=== PATIENT | female | born 1995 | race Caucasian/White ===

== ENCOUNTER 2021-02-24 18:00 | Inpatient (IN) | payer BC ==
[~2021-02-24] VITALS: Ht 165.1 cm; Wt 105.0 kg
[2021-02-24] MEDS ORDERED: GLUCOPHAGE1000 MG PO (18:16)
[2021-02-24 19:15] VITALS: BP 157/85
--- NOTE | 2021-02-24 20:08 | NUR ---
PT TO RADIOLOGY VIA WHEELCHAIR
--- NOTE | 2021-02-24 20:20 | NUR ---
PT RETURNED FROM RADIOLOGY
[2021-02-24 20:30] VITALS: BP 143/92
--- NOTE | 2021-02-24 21:17 | NUR ---
PT GIVEN ICE WATER TO DRINK. DENIES FURTHER NEEDS. CALL LIGHT IN REACH.
[2021-02-24 21:29] LABS: BASOPHILS 0.4 % (0-2); EOSINOPHILS 6.5 % (0-7); HEMATOCRIT 40.7 % (36.0-48.0); HEMOGLOBIN 12.8 g/dL (12-16); LYMPHOCYTES 46.5 % (15-50); MCH 25.1 pg (26.0-34.0); MCHC 31.4 g/dL (31.0-37.0); MCV 79.8 fL (80.0-100.0); MEAN PLATELET VOLUME 10.1 fL (7.4-10.4); MONOCYTES 7.1 % (2-11); NEUTROPHIL ABS# 2.13 10x3/uL (1.56-6.13); NEUTROPHILS 39.5 % (40-80); PLATELET COUNT 264 10x3/uL (130-400); RDW 13.1 % (11.5-14.5); WBC 5.4 10x3/uL (4.8-10.8)
[2021-02-24 21:41] LABS: APTT 34.1 SECONDS (22.8-39.4); INR 1.07 (0.85-1.17); PROTIME 12.9 SECONDS (11.6-15.0)
[2021-02-24 21:42] LABS: CALC OSMOLALITY 276 mosm/kg (275-300); CALCIUM 9.5 mg/dL (8.5-10.1); CARBON DIOXIDE 22.7 mmol/L (21.0-32.0); CHLORIDE - SERUM 103 mmol/L (98-107); CREATININE - SERUM 0.8 mg/dL (0.6-1.3); GLUCOSE 91 mg/dL (74-106); POTASSIUM - SERUM 3.9 mmol/L (3.5-5.1); SODIUM 139 mmol/L (136-145); UREA NITROGEN 9 mg/dL (7-18); eGFR NON AFRICAN AMERICAN > 90 mL/min (90-120)
[2021-02-24 21:52] LABS: ALBUMIN 3.7 g/dL (3.4-5.0); ALKALINE PHOSPHATASE 90 U/L (30-120); ALT (SGPT) 64 U/L (10-68); BILIRUBIN - TOTAL 0.42 mg/dL (0.2-1.3); CREATINE KINASE 43 UL (21-215)
[2021-02-24 21:53] LABS: TROPONIN-I < 0.017 ng/mL (0.000-0.060)
--- NOTE | 2021-02-24 23:10 | NUR ---
RECEIVED PT FROM ER VIA WHEELCHAIR. PT A&O X4. PIV TO RIGHT AC PATENT AND S/L, NO REDNESS OR SWELLING. PT ABLE TO AMBULATE AD KIM. EDUCATED PT ON CL AND NEEDS, VERBALIZED UNDERSTANDING. BED LOW, CL IN REACH.
[2021-02-24] MEDS ORDERED: MELATONIN 3 MG1 TAB PO (23:28)
[2021-02-24 23:31] VITALS: BP 149/90; BMI 38.5
[2021-02-25 06:42] LABS: BASOPHILS 0.5 % (0-2); EOSINOPHILS 5.5 % (0-7); HEMATOCRIT 39.8 % (36.0-48.0); HEMOGLOBIN 12.4 g/dL (12-16); IMMATURE GRANULOCYTES 0.2 % (0-5); LYMPHOCYTE ABS# 2.51 10x3/uL (1.18-3.74); LYMPHOCYTES 42.2 % (15-50); MCH 25.1 pg (26.0-34.0); MCHC 31.2 g/dL (31.0-37.0); MCV 80.6 fL (80.0-100.0); MEAN PLATELET VOLUME 10.2 fL (7.4-10.4); MONOCYTES 8.6 % (2-11); NEUTROPHIL ABS# 2.56 10x3/uL (1.56-6.13); PLATELET COUNT 243 10x3/uL (130-400); RBC 4.94 10x6/uL (4.00-5.40); RDW 13.2 % (11.5-14.5)
[2021-02-25 07:31] LABS: ALBUMIN 3.4 g/dL (3.4-5.0); ALKALINE PHOSPHATASE 90 U/L (30-120); ALT (SGPT) 55 U/L (10-68); C-REACTIVE PROTEIN 0.7 mg/dL (0.0-0.9); CALC OSMOLALITY 277 mosm/kg (275-300); CALCIUM 9.3 mg/dL (8.5-10.1); CARBON DIOXIDE 27.8 mmol/L (21.0-32.0); CHLORIDE - SERUM 104 mmol/L (98-107); CREATININE - SERUM 0.9 mg/dL (0.6-1.3); GLUCOSE 98 mg/dL (74-106); MAGNESIUM - SERUM 2.2 mg/dL (1.8-2.4); POTASSIUM - SERUM 4.1 mmol/L (3.5-5.1); PROTEIN - SERUM 7.5 g/dL (6.4-8.2); SODIUM 140 mmol/L (136-145); UREA NITROGEN 9 mg/dL (7-18); eGFR NON AFRICAN AMERICAN 81 mL/min (90-120)
[2021-02-25 08:14] LABS: ERYTHROCYTE SEDIMENTATION RATE 14 mm/hr (0-20)
[2021-02-25 10:38] VITALS: Ht 165.1 cm; Wt 105.0 kg
[2021-02-25 12:43] VITALS: BP 116/65
--- NOTE | 2021-02-25 13:45 | NUR ---
PT SITTING UP IN BED, NO SIGNS OF DISTRESS, NO NEEDS AT THIS TIME
[2021-02-25 17:23] VITALS: BP 163/114
[2021-02-25 20:00] VITALS: BP 139/92
--- NOTE | 2021-02-25 20:30 | NUR ---
WATCHING TV WITH NO COMPALITNS VOICED. RESP EVEN AND UNLABORED. NO DISTRESS NOTED. CL IN REACH
[2021-02-26 05:29] LABS: BASOPHILS 0.4 % (0-2); EOSINOPHILS 5.3 % (0-7); HEMOGLOBIN 11.7 g/dL (12-16); IMMATURE GRANULOCYTES 0.4 % (0-5); LYMPHOCYTE ABS# 2.07 10x3/uL (1.18-3.74); LYMPHOCYTES 40.6 % (15-50); MCH 24.9 pg (26.0-34.0); MCHC 30.8 g/dL (31.0-37.0); MEAN PLATELET VOLUME 10.2 fL (7.4-10.4); MONOCYTES 7.6 % (2-11); NEUTROPHIL ABS# 2.33 10x3/uL (1.56-6.13); NEUTROPHILS 45.7 % (40-80); PLATELET COUNT 221 10x3/uL (130-400); RBC 4.69 10x6/uL (4.00-5.40); RDW 13.4 % (11.5-14.5); WBC 5.1 10x3/uL (4.8-10.8)
[2021-02-26 05:43] LABS: APTT 34.9 SECONDS (22.8-39.4); INR 1.04 (0.85-1.17); PROTIME 12.6 SECONDS (11.6-15.0)
[2021-02-26 05:55] LABS: ALBUMIN 3.3 g/dL (3.4-5.0); ALKALINE PHOSPHATASE 83 U/L (30-120); ALT (SGPT) 56 U/L (10-68); BILIRUBIN - TOTAL 0.33 mg/dL (0.2-1.3); CALC OSMOLALITY 279 mosm/kg (275-300); CARBON DIOXIDE 24.1 mmol/L (21.0-32.0); CHLORIDE - SERUM 106 mmol/L (98-107); CREATININE - SERUM 0.8 mg/dL (0.6-1.3); GLUCOSE 109 mg/dL (74-106); PHOSPHOROUS 4.6 mg/dL (2.5-4.9); POTASSIUM - SERUM 3.9 mmol/L (3.5-5.1); PROTEIN - SERUM 7.3 g/dL (6.4-8.2); SODIUM 141 mmol/L (136-145); UREA NITROGEN 7 mg/dL (7-18); eGFR NON AFRICAN AMERICAN > 90 mL/min (90-120)
[2021-02-26 06:30] LABS: ERYTHROCYTE SEDIMENTATION RATE 21 mm/hr (0-20)
[2021-02-26 07:00] VITALS: BP 141/93
--- NOTE | 2021-02-26 07:49 | NUR ---
RESTING COMFORTABLY IN BED WITH EYES CLOSED, FAMILY AT THE BEDSIDE. IV LOCATED TO RIGHT AC CURRENTLY SL. NO CURRENT S/S OF DISTRESS, WILL CONT TO MONITOR.
--- NOTE | 2021-02-26 11:52 | NUR ---
IV BAD TO RIGHT AC, RESTARTED TO RIGHT HAND. WILL CONT TO MONITOR.
[2021-02-26 12:22] LABS: HCG URINE NEGATIVE (NEGATIVE)
[2021-02-26 15:07] VITALS: BP 141/92
--- NOTE | 2021-02-26 23:41 | NUR ---
I have reviewed this patient and I concur with the Shift Assessment completed by the Licensed Practical Nurse today this shift.
[2021-02-27 06:55] LABS: ALBUMIN 3.5 g/dL (3.4-5.0); ALKALINE PHOSPHATASE 92 U/L (30-120); ALT (SGPT) 66 U/L (10-68); BILIRUBIN - TOTAL 0.34 mg/dL (0.2-1.3); CALC OSMOLALITY 278 mosm/kg (275-300); CALCIUM 9.6 mg/dL (8.5-10.1); CHLORIDE - SERUM 106 mmol/L (98-107); CREATININE - SERUM 0.7 mg/dL (0.6-1.3); GLUCOSE 98 mg/dL (74-106); PHOSPHOROUS 4.8 mg/dL (2.5-4.9); POTASSIUM - SERUM 4.3 mmol/L (3.5-5.1); PROTEIN - SERUM 7.2 g/dL (6.4-8.2); SODIUM 141 mmol/L (136-145); UREA NITROGEN 8 mg/dL (7-18); eGFR NON AFRICAN AMERICAN > 90 mL/min (90-120)
[2021-02-27 07:08] LABS: BASOPHILS 0.5 % (0-2); HEMATOCRIT 39.2 % (36.0-48.0); HEMOGLOBIN 12.1 g/dL (12-16); LYMPHOCYTE ABS# 2.45 10x3/uL (1.18-3.74); LYMPHOCYTES 41.6 % (15-50); MCHC 30.9 g/dL (31.0-37.0); MEAN PLATELET VOLUME 10.2 fL (7.4-10.4); MONOCYTES 7.1 % (2-11); NEUTROPHIL ABS# 2.58 10x3/uL (1.56-6.13); NEUTROPHILS 43.8 % (40-80); PLATELET COUNT 220 10x3/uL (130-400); RBC 4.84 10x6/uL (4.00-5.40); RDW 13.5 % (11.5-14.5); WBC 5.9 10x3/uL (4.8-10.8)
--- NOTE | 2021-02-27 07:11 | NUR ---
REC'D IN ROOM AWAKE AND ALERT. RESP EVEN AND UNLABORED WITH NO DISTRESS NOTED OR VOICED. CAN EXPRESS NEEDS AND WANTS. NO C/O NOTED OR VOICED. ASSESSMENT COMPLETED. C/L IN REACH AT BEDSIDE.
[2021-02-27 10:18] VITALS: BP 125/74
[2021-02-27 14:00] VITALS: BP 149/96
[2021-02-27 16:25] VITALS: BP 148/81
--- NOTE | 2021-02-27 16:25 | NUR ---
REC'D BACK FROM RECOVERY AT THIS TIME ALERT AND ORIENTED VERY DROWSY AT THIS TIME. RESP EVEN AND UNLABORED WITH NO DISTRESS NOTED. CAN EXPRESS NEEDS AND WANTS. NO C/O NOTED OR VOICEED. VS PER PROTOCOL. FAMILY AND C/L IN REACH AT BEDSIDE.
--- NOTE | 2021-02-27 18:32 | NUR ---
IN BED, FAMILY AT BEDSIDE. BED LOW POSITION, CALL LIGHT IN REACH. DENIES NEEDS AT THIS TIME. FREE FROM SIGNS OF DISTRESS. WILL CONTINUE TO MONITOR.
--- NOTE | 2021-02-27 19:45 | NUR ---
RECEIVED BEDSIDE REPORT. PT LAYING IN BED A&O X4. PIV TO LEFT AC, PATENT AND INFUSING, NO REDNESS OR SWELLING. PT ABLE TO AMBULATE AD KIM. EDUCATED PT ON CL AND NEEDS, VERBALIZED UNDERSTANDING. BED LOW, CL IN REACH.
[2021-02-27 20:00] VITALS: BP 131/79
[2021-02-28 04:00] VITALS: BP 115/62
[2021-02-28 06:56] LABS: BASOPHILS 0.1 % (0-2); EOSINOPHILS 0 % (0-7); HEMATOCRIT 38.3 % (36.0-48.0); HEMOGLOBIN 12.4 g/dL (12-16); LYMPHOCYTES 11.1 % (15-50); MCH 25.1 pg (26.0-34.0); MCHC 32.2 g/dL (31.0-37.0); MONOCYTES 4.1 % (2-11); NEUTROPHILS 84.7 % (40-80); RBC 4.93 10x6/uL (4.00-5.40); RDW 13.8 % (11.5-14.5)
[2021-02-28 07:03] LABS: MCV 77.7 fL (80.0-100.0); PLATELET COUNT 317 10x3/uL (130-400); WBC 13.4 10x3/uL (4.8-10.8)
[2021-02-28 07:40] LABS: ALBUMIN 3.7 g/dL (3.4-5.0); ALKALINE PHOSPHATASE 94 U/L (30-120); ALT (SGPT) 60 U/L (10-68); BILIRUBIN - TOTAL 0.49 mg/dL (0.2-1.3); CALC OSMOLALITY 280 mosm/kg (275-300); CALCIUM 9.8 mg/dL (8.5-10.1); CARBON DIOXIDE 19.9 mmol/L (21.0-32.0); CHLORIDE - SERUM 104 mmol/L (98-107); CREATININE - SERUM 0.9 mg/dL (0.6-1.3); GLUCOSE 150 mg/dL (74-106); PHOSPHOROUS 3.4 mg/dL (2.5-4.9); POTASSIUM - SERUM 4.4 mmol/L (3.5-5.1); PROTEIN - SERUM 7.7 g/dL (6.4-8.2); SODIUM 140 mmol/L (136-145); UREA NITROGEN 11 mg/dL (7-18); eGFR NON AFRICAN AMERICAN 81 mL/min (90-120)
[2021-02-28 08:13] LABS: HCG-QUANTITATIVE(TUMOR MARKER) <1 mIU/mL (())
[2021-02-28 10:02] VITALS: BP 120/52
[2021-02-28 10:12] LABS: HEPATITIS C ANTIBODY <0.1 S/CO RAT (0.0-0.9)
[2021-02-28 10:12] LABS: ANA REFLEX - DIRECT Negative (Negative)
[2021-02-28 10:12] LABS: THYROGLOBULIN ANTIBODY <1.0 IU/mL (0.0-0.9)
[2021-02-28] MEDS ORDERED: SINGULAIR10 MG PO (13:35)
[2021-02-28] MEDS ORDERED: ADOXA100 MG PO (13:35)
[2021-02-28] MEDS ORDERED: ALBUTEROL SULF8.5 GM INH (13:36)
[2021-02-28] MEDS ORDERED: BREO ELLIPTA 21 EACH INH (13:37)
[2021-02-28 14:48] VITALS: BP 135/85
[2021-02-28 16:09] LABS: BASOS 1 % (Not Estab.); CD4:8 - % CD4 POS. LYMPH 53.3 % (30.8-58.5); CD4:8 - % CD8 POS LYMPH 16.6 % (12.0-35.5); CD4:8 - ABS CD8 SUPPRESSOR 332 /uL (109-897); CD4:8 - ABSOLUTE CD4 HELPER 1066 /uL (359-1519); CD4:8 - CD4/CD8 RATIO 3.21 (0.92-3.72); EOS 5 % (Not Estab.); EOS (ABSOLUTE) 0.3 x10E3/uL (0.0-0.4); HEMATOCRIT 38.6 % (34.0-46.6); HEMOGLOBIN 11.6 g/dL (11.1-15.9); LYMPHS 41 % (Not Estab.); MCH 25.2 pg (26.6-33.0); MCHC 30.1 g/dL (31.5-35.7); MCV 84 fL (79-97); MONOCYTES 6 % (Not Estab.); MONOCYTES (ABSOLUTE) 0.3 x10E3/uL (0.1-0.9); NEUTROPHILS 47 % (Not Estab.); NEUTROPHILS (ABSOLUTE) 2.4 x10E3/uL (1.4-7.0); PLATELETS 226 x10E3/uL (150-450)
[2021-03-01 07:16] LABS: BETA-2 MICROGLOBULIN 2.6 mg/L (0.6-2.4)
--- NOTE | 2021-03-01 08:46 | MORECARE ---
CASE MANAGEMENT DISCHARGE SUMMARY PATIENT: ADELA FREEMAN UNIT: [id number] ADM DATE: 02/24/21 AGE: 25 : 89 SEX: F ROOM/BED: D.2207 AUTHOR: NICOLE,DOC PHYSICIAN: REFERRING PHYSICIAN: KIMBERLEE GONZALEZ MD DATE OF SERVICE: 03/01/21 Case Management Discharge Planning Summary DCP REVIEW SUMMARY ANTICIPATED D/C DATE: EXPECTED LOS : 0 CASE STATUS: DCP Not started INITIAL REVIEW: 02/24/2021 INITIAL REVIEWER: Mary Sandoval FINAL DISCHARGE DISPOSITION: 01 : Home or Self Care (Routine Discharge) FINAL REVIEWER: Mary Sandoval FINAL REVIEW DATE: 03/01/2021 DCP Focus Questions & Answers QUESTION: ANSWER : PATIENT: ADELA FREEMAN ENCOUNTER: [id number] MEDICAL RECORD#: [id number] ADMISSION DATE: 02/24/2021 DISCHARGE DATE: 02/28/2021 ATTENDING MD: KIMBERLEE KRISHNA : AGE: 25 MARITAL STATUS: M DC PLAN ID: [id number] FACILITY: [facility] PRINTED ON: 03/01/21 8:45 CT All edits/amendments must be made on the electronic document DICTATION DATE: 03/01/21844 FLEXOGRAPHIC PRESS PLATE SETTER: GYPSY 03/01/21844 RPT#: [id number] DC DATE:02/28/21 STATUS: DIS IN [facility] [address] [place] [address] END OF REPORT
[2021-03-01 11:11] LABS: ANGIOTENSIN CONVERTING ENZYME 158 U/L (14-82)
[2021-03-01 15:12] LABS: IMMUNOGLOBULIN E 94 IU/mL (6-495)
[2021-03-02 22:07] LABS: FUNGAL - ASP FLAVUS Negative (Neg:<1:1); FUNGAL - ASP NIGER Negative (Neg:<1:1); FUNGAL - ASPER FUMIGATUS Negative (Neg:<1:1)
== END 2021-02-28 15:44 | disposition home or self-care (01) | DRG 816 ==
LOC: D.ER 18:00 → D.MS 22:11
PROVIDERS: Emergency Medicine; Internal Medicine Hematology & Oncology; Internal Medicine Pulmonary Disease; ADMIT Emergency Medicine; ATTEND Emergency Medicine
PROC: 07D78ZX Extraction of Thorax Lymphatic, Via Natural or Artificial Opening Endoscopic, Diagnostic (ICD-10-PCS; principal; 2021-02-27 14:15)
DX: R59.1 Generalized enlarged lymph nodes (principal); J06.9 Acute upper respiratory infection, unspecified; F41.8 Other specified anxiety disorders; R13.10 Dysphagia, unspecified; E28.2 Polycystic ovarian syndrome; J30.9 Allergic rhinitis, unspecified; E01.0 Iodine-deficiency related diffuse (endemic) goiter; I10 Essential (primary) hypertension; R16.0 Hepatomegaly, not elsewhere classified

== ENCOUNTER 2021-03-06 14:30 | Emergency (ER) | payer BC ==
[~2021-03-06] VITALS: Ht 165.1 cm; Wt 105.0 kg
[~2021-03-06 14:30] MED LIST: ADOXA100 MG PO; ALBUTEROL SULF8.5 GM INH; BREO ELLIPTA 21 EACH INH; GLUCOPHAGE1000 MG PO; MELATONIN 3 MG1 TAB PO; SINGULAIR10 MG PO
[2021-03-06 14:36] VITALS: Ht 165.1 cm; Wt 105.0 kg
[2021-03-06 16:02] VITALS: BP 131/80
== END 2021-03-06 16:00 | disposition home or self-care (01) ==
LOC: D.ER 14:30
DX: J02.9 Acute pharyngitis, unspecified (principal); R05 Cough